=== PATIENT | female | born 1985 | race Hispanic/Latino ===

== ENCOUNTER 2024-08-15 22:33 | Emergency (ER) | payer SELFPAY ==
[~2024-08-15] VITALS: Ht 152.4 cm; Wt 81.6 kg
--- NOTE | 2024-08-15 22:34 | NUR ---
UA CUP PROVIDED
[2024-08-15] MEDS: ondanSETRON 4MG INJ IVP ONE (22:50)
[2024-08-15 23:04] VITALS: TEMP 97.3
[2024-08-15 23:12] LABS: BASOPHILS # (AUTO) 0.04 K/uL (0.00-0.20); BASOPHILS % (AUTO) 0.4 % (0.0-5.0); EOSINOPHILS % (AUTO) 4.4 % (0.0-8.0); IMMATURE GRANULOCYTE ABSOLUTE 0.02 K/uL (0-1); LYMPHOCYTES # (AUTO) 4.1 K/uL (1.0-4.8); LYMPHOCYTES % (AUTO) 44.9 % (21.0-51.0); MEAN CORPUSCULAR HEMOGLOBIN 30.4 pg (27.0-33.0); MEAN CORPUSCULAR HGB CONC 33.9 g/dL (32.0-36.0); MEAN CORPUSCULAR VOLUME 89.6 fL (79-99); MONOCYTES # (AUTO) 0.5 K/uL (0.1-1.0); MONOCYTES % (AUTO) 5.6 % (3.0-13.0); NEUTROPHILS # (AUTO) 4.1 K/uL (1.8-7.7); NEUTROPHILS % (AUTO) 44.5 % (40.0-77.0); PLATELET COUNT (AUTO) 237 K/uL (130-400); RED BLOOD CELL COUNT(AUTO) 4.24 MIL/uL (4.00-5.50); RED CELL DISTRIBUTION WIDTH 12.2 % (11.0-15.5); WHITE BLOOD COUNT (AUTO) 9.2 K/uL (4.8-10.8)
[2024-08-15 23:34] LABS: CREATININE 0.7 mg/dL (0.5-1.0); POTASSIUM 3.7 mmol/L (3.5-5.1)
[2024-08-16] MEDS: ketOROlac 15MG/ML VIAL (15MG/ML) IV ONE (00:04)
[2024-08-16] MEDS: DiphenhydrAMINE HCL 50 MG/ML VIAL IV ONE (00:04)
[2024-08-16] MEDS: PROCHLORPERAZINE 10MG/2ML INJ IV ONE (00:04)
--- NOTE | 2024-08-16 00:06 | HMCIMG ---
CT HEAD/BRAIN W/O CONTRAST HISTORY: Severe headaches COMPARISON: None TECHNIQUE: Multiple sequential axial images of the head were obtained from the base of the skull through vertex. Patient was not given contrast through intravenous route. FINDINGS: The ventricles and extraventricular CSF spaces are nondilated for patient's age. There is no midline shift, mass effect or herniation. No acute intracranial bleed is seen. Visualized portion of the paranasal sinuses are grossly within normal limits. IMPRESSION: 1. No acute intracranial bleed is seen. CT was performed with one or more following dose reduction techniques: automated exposure control, adjustment of the mA and kv according to patient's size, or use of a iterative reconstruction technique.
[2024-08-16 00:58] VITALS: BP 114/78; PULSE 70; RESP 20; O2SAT 98
[2024-08-16] MEDS ORDERED: KETO10TA2 PO (01:01)
--- NOTE | 2024-08-16 01:01 | ERN ---
General Chief Complaint: Headache Stated Complaint: HEADACHE, VOMITING Time Seen by MD: 22:36 Time Seen by Midlevel: 22:36 Source: patient History of Present Illness Initial Comments Patient is a 39-year-old female with no significant past medical history presenting to the emergency department with a severe temporal headache that started at 6:00 p.m. today. The pain is rated 10/10 with light sensitivity. She reports two episodes of vomiting prior to arrival. She does report similar episodes in the past but she was never been given the diagnosis of migraine headaches. She specifically denies any chest pain, shortness for breath, vision changes, or any other symptoms at this time. Denies being . Allergies: Coded Allergies: No Known Allergies (Unverified Allergy, Unknown, 08/15/24) Home Meds Active Scripts Ketorolac Tromethamine (Ketorolac Tromethamine) 10 Mg Tablet, 10 MG PO BID for 5 Days, #10 TAB Prov:ARUNA GIVENS 08/16/24 Past Medical History Past Medical History: No Pertinent History Past Surgical History: None ROS Dictation CONSTITUTIONAL: Negative except for HPI HEAD/FACE: Negative except for HPI EENT: Negative except for HPI RESPIRATORY: Negative except for HPI GASTROINTESTINAL/ABDOMINAL: Negative except for HPI GENITOURINARY: Negative except for HPI MUSCULOSKELETAL: Negative except for HPI INTEGUMENTARY: Negative except for HPI NEUROLOGICAL/PSYCH: Negative except for HPI HEMATOLOGIC/LYMPHATIC: Negative except for HPI All Systems Negative, Except as noted above. 13 point review of systems assessed and all negative except for above. Physical Exam Physical Exam Dictation Vital Signs reviewed General Appearance: Alert, oriented x 3, no acute distress, well developed, nour ished. Head and Face: non-traumatic. Eyes: PERRL, pink conjunctivas, eyelid no trauma, anterior chamber with arcus senilis. Ears: Pinnas intact and no signs of trauma or erythema ear canals clear and no discharge TM no erythema Nose: No discharge, no bleeding. Oropharynx: Mouth normal, tongue pink, pharynx clear,no erythema, tonsils no exudates, no abscesses noted, mucous mem brane moist Neck: Supple, non-tender, no thyromegaly, no masses, no JVD, no bruits Breast:Deferred Chest:No tenderness, no crepitus, no paradoxical movement, no retractions Lungs:Clear, well-ventilated, symmetric, no rales, no wheezing, no rhonchi, no stridor, good breath sounds bilaterally Heart: Regular rate, regular rhythm, no murmur, no gallops Vascular: no peripheral edema, Abdomen: Soft, positive bowel sounds, nondistended, no guarding, nontender, no rebound, no masses no hepatomegaly, no splenomegaly, no Devries's sign, no hernias. Rectal: Deferred Genital: Deferred Neurological: Normal speech, motor function intact, sensory function intact Musculoskeletal: Neck nontender, full range of motion, back nontender, full range of motion, Extremities: nontender, full range of motion Skin: Color pink, dry, no turgor, no rash, no lacerations, no abrasions, no contusions. Lymphatic: Deferred Results Laboratory and Microbiology Lab and Micro Result Laboratory Tests Test 08/15/24 22:55 White Blood Count 9.2 K/uL (4.8-10.8) Red Blood Count 4.24 MIL/uL (4.00-5.50) Hemoglobin 12.9 g/dL (12.0-16.0) Hematocrit 38.0 % (36-48) Mean Corpuscular Volume 89.6 fL (79-99) Mean Corpuscular Hemoglobin 30.4 pg (27.0-33.0) Mean Corpuscular Hemoglobin Concent 33.9 g/dL (32.0-36.0) Red Cell Distribution Width 12.2 % (11.0-15.5) Platelet Count 237 K/uL (130-400) Mean Platelet Volume 10.5 fL (7.5-10.5) Immature Granulocyte % (Auto) 0.2 % (0-1) Neutrophils (%) (Auto) 44.5 % (40.0-77.0) Lymphocytes (%) (Auto) 44.9 % (21.0-51.0) Monocytes (%) (Auto) 5.6 % (3.0-13.0) Eosinophils (%) (Auto) 4.4 % (0.0-8.0) Basophils (%) (Auto) 0.4 % (0.0-5.0) Neutrophils # (Auto) 4.1 K/uL (1.8-7.7) Lymphocytes # (Auto) 4.1 K/uL (1.0-4.8) Monocytes # (Auto) 0.5 K/uL (0.1-1.0) Eosinophils # (Auto) 0.40 K/uL (0.00-0.70) Basophils # (Auto) 0.04 K/uL (0.00-0.20) Absolute Immature Granulocyte (auto 0.02 K/uL (0-1) Nucleated Red Blood Cells 0.0 % (0.0-0.19) Sodium Level 142 mmol/L (136-145) Potassium Level 3.7 mmol/L (3.5-5.1) Chloride Level 106 mmol/L (101-111) Carbon Dioxide Level 27 mmol/L (21-32) Blood Urea Nitrogen 11 mg/dL (7-18) Creatinine 0.7 mg/dL (0.5-1.0) Glomerular Filtration Rate Calc 114 mL/min (>90) Random Glucose 103 mg/dL (70-105) Total Calcium 8.8 mg/dL (8.5-10.1) Serum Test, Qualitative NEGATIVE (NEGATIVE) Labs Reviewed?: Yes MDM MDM: Patient is a 39-year-old female with no significant past medical history presenting to the emergency department with a severe temporal headache that started at 6:00 p.m. today. The pain is rated 10/10 with light sensitivity. She reports two episodes of vomiting prior to arrival. She does report similar episodes in the past but she was never been given the diagnosis of migraine headaches. She specifically denies any chest pain, shortness for breath, vision changes, or any other symptoms at this time. Denies being . On physical examination patient is in [id number] distress secondary to her headache. She has photophobia. She is alert and oriented x4 with a GCS of 15 but given her clinical presentation a CT scan was ordered to rule out a subarachnoid hemorrhage. Her CBC and chemistries are unremarkable. Electrolytes are normal. Her CT scan of the head are negative for any acute injury. Patient was given a migraine cocktail and observed for the next 30 minutes. After the administration of medications patient states her headache has completely resolved. She is sleeping comfortable in bed on repeat examination. Patient will be discharged home with a diagnosis of migraine headaches. Differential diagnosis: Cluster headache, migraine headache, intracranial bleed There are no social concerns with this patient. Prescription drug management Prescriptions will include: Toradol Medical management and examination interpretation discussions were had by me with other qualified healthcare professionals as indicated for the patient's care. ED Course Orders Procedure Category Date Status Time Ct Head/Brain W/O CT 08/15/24 Resulted Contrast 22:42 Cbc With Differential LAB 08/15/24 Complete 22:42 Basic Metabolic Panel LAB 08/15/24 Complete 22:42 Testing, LAB 08/15/24 Complete Serum Hcg 22:42 Ondansetron 4mg Inj PHA 08/15/24 Complete (Zofran 4mg Inj) 23:00 Prochlorperazine PHA 08/16/24 Complete 10mg/2ml Inj 00:00 Diphenhydramine Hcl PHA 08/16/24 Complete (Benadryl Inj) 00:00 Ketorolac PHA 08/16/24 Complete Tromethamine 15mg/Ml 00:00 Current Medications Medications (Trade) Dose Ordered Sig/Maikel Route PRN Reason Start Time Stop Time Status Last Admin Dose Admin Diphenhydramine HCl (BENAdryl INJ) 25 mg ONCE ONCE IV 08/16/24 00:00 08/16/24 00:01 DC 08/16/24 00:04 Ketorolac Tromethamine (toRADol) 15 mg ONCE ONCE IV 08/16/24 00:00 08/16/24 00:01 DC 08/16/24 00:04 Ondansetron HCl (zoFRAN 4MG INJ) 4 mg ONCE ONCE IVP 08/15/24 23:00 08/15/24 23:01 DC 08/15/24 22:50 Prochlorperazine Edisylate (Compazine 10mg/ 2ml Inj) 10 mg ONCE ONCE IV 08/16/24 00:00 08/16/24 00:01 DC 08/16/24 00:04 Vital Signs Date Time Temp Pulse Resp B/P (MAP) Pulse Ox O2 Delivery O2 Flow Rate FiO2 08/16/24 00:58 70 20 114/78 98 Room Air* 0 08/16/24 00:11 68 18 110/71 98 Room Air* 0 08/15/24 23:04 97.3 74 20 123/71 98 Room Air* 0 08/15/24 22:37 98.8 66 20 134/89 100 Room Air* 0 08/15/24 22:34 97.3 67 20 129/86 100 Room Air [facility] [address] [place] [address] IMAGING REPORT Signed PATIENT: KARLA FUENTES MR#: [id number] : 1985 SEX: F AGE: 39 LOCATION: [facility] ORDER 42 STATUS: REG ER REPORT#: [id number] SERVICE 41 REASON: severe headache with nausea and vomiting r/o [facility] ORDERING PHYSICIAN: ARUNA GIVENS PROCEDURE: HEAD WO - CT HEAD/BRAIN W/O CONTRAST CT HEAD/BRAIN W/O CONTRAST HISTORY: Severe headaches COMPARISON: None TECHNIQUE: Multiple sequential axial images of the head were obtained from the base of the skull through vertex. Patient was not given contrast through intravenous route. FINDINGS: The ventricles and extraventricular CSF spaces are nondilated for patient's age. There is no midline shift, mass effect or herniation. No acute intracranial bleed is seen. Visualized portion of the paranasal sinuses are grossly within normal limits. IMPRESSION: 1. No acute intracranial bleed is seen. CT was performed with one or more following dose reduction techniques: automated exposure control, adjustment of the mA and kv according to patient's size, or use of a iterative reconstruction technique. DICTATED BY: CHANDA TOUSSAINT MD DATE: 08/16/24 0000 ELECTRONICALLY SIGNED BY: CHANDA TOUSSAINT MD DATE: 08/16/24 0006 DX & DISP Disposition: Discharge Departure Impression: Primary Impression: Migraine headache Condition: Stable Scripts Ketorolac Tromethamine (Ketorolac Tromethamine) 10 Mg Tablet 10 MG PO BID for 5 Days, #10 TAB Prov: ARUNA GIVENS 08/16/24 Additional Instructions: Your blood work today is unremarkable. Your CT scan of the brain is negative for any acute abnormality. Your symptoms are most likely related to a migraine headache. Follow up with your primary care doctor in 2-3 days for repeat evaluation. Return to the ER for any new or worsening symptoms. Referrals: SELF,REFERRAL (PCP) Time of Disposition: 01:00 I have reviewed the case, and I agree with, Diagnosis and Plan I performed the substantive portion of the visit. I have reviewed and personally made and approve the management plan that is documented in the note by myself or the OPHELIA. I acknowledge for responsibility for the patient's management plan. ARUNA GIVENS Aug 16, 2024 01:01
== END 2024-08-16 01:03 | disposition home or self-care (01) ==
LOC: EDH 22:33
DX: G43.909 Migraine, unspecified, not intractable, without status migrainosus (principal); Z79.899 Other long term (current) drug therapy
CPT/HCPCS: 99285; 96374; 70450; 80048; 84703; 85025; 36415; 96375; J2405; J1200; J0780; J1885